=== PATIENT | female | born 1940 | race Caucasian/White ===

== ENCOUNTER → 2016-06-13 | Outpatient (CLI) | payer MEDICARE, OTHER | LOC: GMAB 10:43 | PROVIDERS: ATTEND Family Medicine | DX: E03.9 Hypothyroidism, unspecified (principal); R31.0 Gross hematuria; I10 Essential (primary) hypertension; E78.2 Mixed hyperlipidemia; E11.8 Type 2 diabetes mellitus with unspecified complications; Z79.4 Long term (current) use of insulin ==

== ENCOUNTER → 2016-06-20 | Outpatient (CLI) | payer MEDICARE, OTHER ==
--- NOTE | 2016-06-21 08:54 | CT ---
EXAM DESCRIPTION: CT ABDOMEN AND PELVIS WITHOUT AND WITH CONTRAST CLINICAL HISTORY: GROSS HEMATURIA COMPARISON: December 31, 2014 TECHNIQUE: CT of the abdomen and pelvis are performed prior to and during IV bolus administration of nonionic contrast this exam was performed according to our departmental dose-optimization program, which includes automated exposure control, adjustment of the mA and/or kV according to patient size and/or use of iterative reconstruction technique. FINDINGS: The lung bases are stable and unchanged from 2015 examination. Noncontrast imaging demonstrates no intrarenal calculi involving the left kidney with a large renal pelvic stone filling the distended right renal pelvis with multiple moderate lower pole intrarenal calculi also evident as well as a small hyperdense subcentimeter cyst posterior margin of the mid right kidney. Right-sided calculi are little changed from 2015 examination. Contrast-enhanced imaging demonstrates an unremarkable appearance of the liver and biliary system as well as the spleen and pancreas and adrenal glands with a fluid-filled stomach incidentally noted. On the left a benign cyst upper pole of the kidney is noted with normal renal function with additional smaller cysts involving the lower pole with an intermediate density lower pole left renal cyst measuring 39 Hounsfield units on postcontrast imaging. Correlation with renal sonography is recommended. Right kidney demonstrates normal renal function and demonstrates multiple small to moderately large benign renal cysts involving predominantly the upper lobe and to a lesser extent the lower lobe. No definite solid renal masses are noted on the right. Continuing into the pelvis the bowel and bladder and anterior abdominal and pelvic wall are unremarkable with a normal-appearing vaginal cuff and surgical absence of the uterus. No adnexal masses are noted. Mild levoscoliosis of the spine with moderately advanced degenerative changes are present. This is most evident at L4-5 and L5-S1. IMPRESSION: 1. Multiple right intrarenal calculi including a large renal pelvic stone that overall is little changed from previous 2015 examination with very little evidence of significant obstruction. 2. Multiple bilateral renal lung cysts within intermediate density nonenhancing probable cyst lower pole of the left kidney that should be confirmed sonographically. An avascular solid mass on the left lower pole is thought unlikely but not entirely excluded. 3. Prior hysterectomy and advanced degenerative changes of lower lumbar spine. Electronically signed by: Panchito Best MD 06/21/2016 8:54 AM CDT
== END | disposition home or self-care (01) ==
LOC: CT 10:41
PROVIDERS: ATTEND Family Medicine
DX: R31.0 Gross hematuria (principal)

== ENCOUNTER → 2016-07-04 | Outpatient (CLI) | payer MEDICARE, OTHER ==
--- NOTE | 2016-07-04 15:00 | US ---
EXAM DESCRIPTION: Renal CLINICAL HISTORY: 75 years Female, recent CT showed indeterminate finding lower pole left kidney either representing cyst or avascular mass. COMPARISON: June 20, 2016 CT FINDINGS: Multiple simple cortical cysts are seen involving both kidneys including the lower pole of the left kidney where there is a 2.8 cm cyst observed. There is a minimal amount of internal debris within the cyst in the lower pole of the left kidney. There is no worrisome renal finding. Right kidney measures 11.9 x 5.2 x 5.5 cm. As noted on the CT scan there is nonobstructing nephrolithiasis on the right. Left kidney measures 12.4 x 4.9 x 5.2 cm. IMPRESSION: Benign-appearing renal cysts on both sides. The finding on the CT on the left side is a minimally complicated but benign cyst in the lower pole. Nonobstructing right nephrolithiasis Electronically signed by: Silvano Cali MD 07/04/2016 3:00 PM CDT
== END | disposition home or self-care (01) ==
LOC: US 09:29
PROVIDERS: ATTEND Family Medicine
DX: R93.5 Abnormal findings on diagnostic imaging of other abdominal regions, including retroperitoneum (principal)

== ENCOUNTER 2016-08-11 13:26 | Emergency (ER) | payer MEDICARE, OTHER ==
[2016-08-11] MEDS ORDERED: SODIUM CHLORIDE 0.9% (FLUSH) 10 ML SYG IV PRN (13:41)
[2016-08-11] MEDS ORDERED: ASPIRIN TABLET 325 MG TAB PO ONE (13:41)
--- NOTE | 2016-08-11 13:41 | ED.PDOC ---
History of Present Illness - General Chief Complaint: Chest Pain/WI Stated Complaint: chest pain when taking deep breath Time Seen by Provider: 08/11/16 13:40 Source: patient, RN notes reviewed, Vital Signs reviewed Exam Limitations: no limitations - History of Present Illness Initial Comments: Yajaira More 75 y/o female stated that for the last 2 days her chest was hurting whenever she takes a deep breath which radiates to her shoulder blades denies sob,nausea/vomiting diaphoresis but also hurts when moving around Timing/Duration: intermittent, other - 2 days Location: central Activities at Onset: none Prior Chest Pain/Cardiac Workup: no prior chest pain Improving Factors: nothing Worsening Factors: other - taking deep breaths Nitro Today/Relief: no nitro taken today, provided by ED Aspirin Treatment Today: 81 mg x 1, 325 mg x 1, provided by ED Associated Symptoms: other - movement Allergies/Adverse Reactions: Allergies Sulfa Drugs Allergy (Verified 08/11/16 13:56) adhesive tape Allergy (Unknown, Uncoded 04/29/13 17:20) per patient Review of Systems - Review of Systems Constitutional: States: no symptoms reported EENTM: States: no symptoms reported Respiratory: States: no symptoms reported Cardiology: States: see HPI Gastrointestinal/Abdominal: States: no symptoms reported Genitourinary: States: no symptoms reported Musculoskeletal: States: no symptoms reported Skin: States: no symptoms reported Endocrine: States: no symptoms reported Hematologic/Lymphatic: States: no symptoms reported Past Medical History (General) - Patient Medical History Hx Diabetes: Yes Hx Other PMH: Yes - nephrolitiasis,dyslipedemia Surgical History: other - hysterectomy,btl,hemorrhoidectomy - Social History Hx Alcohol Use: No Hx Substance Use: No Hx Substance Use Treatment: No Hx Depression: No Feels Threatened In Home Enviroment: No Feels Threatened In a Relationship: No Hx Physical Abuse: No Hx Emotional Abuse: No Hx Suspected Abuse: No - Activities of Daily Living Patient Lives Alone: No - family Family Medical History - Family History Mother Hx Family Hypertension: Yes - family members Hx Family Stroke: Yes Hx Cardiac Disease: Yes - several family members Physical Exam - Physical Exam General Appearance: Alert, Comfortable, No apparent distress Eyes, Ears, Nose, Throat Exam: PERRL/EOMI, normal ENT inspection, TMs normal, pharynx normal Neck: non-tender, full range of motion, supple, normal inspection Respiratory: chest non-tender, lungs clear, normal breath sounds, no respiratory distress, no accessory muscle use Cardiovascular/Chest: normal peripheral pulses, regular rate, rhythm, no edema, no murmur Peripheral Pulses: radial,right: 2+, radial,left: 2+ Gastrointestinal/Abdominal: normal bowel sounds, non tender, soft Extremity: normal range of motion, non-tender, normal inspection, no pedal edema , no calf tenderness Neurologic: no motor/sensory deficits, alert, normal mood/affect, oriented x 3 Skin Exam: normal color Lymphatic: no adenopathy Progress - Progress Progress: 08/11/16 17:14 Vital Signs - 8 hr 08/11/16 08/11/16 13:30 13:41 Temperature 98.0 F Pulse Rate [ 84 apical] Respiratory 16 Rate Blood Pressure 153/68 [left brachial] O2 Sat by Pulse 94 L 93 L Oximetry 08/11/16 13:41 IV Care:Saline Lock per Protoc QSHIFT Telemetry .ONCE Sodium Chloride 0.9% (Flush) [Saline Flush Syringe] 10 ml IV PRN PRN EKG Stat Pulse Ox Stat 08/11/16 17:15 Be Our Guest Tray (BOG) ONCE 08/11/16 Dinner 1800 Calorie ADA Diet Laboratory Results - last 24 hr 08/11/16 08/11/16 08/11/16 13:50 13:50 16:07 WBC 5.5 RBC 4.03 L Hgb 12.4 Hct 37.4 MCV 93.0 MCH 30.7 MCHC 33.2 RDW 14.0 Plt Count 296 MPV 8.5 Absolute Neuts (auto) 3.00 Absolute Lymphs (auto) 1.80 Absolute Monos (auto) 0.40 Absolute Eos (auto) 0.20 Absolute Basos (auto) 0.00 Neutrophils % 54.8 Lymphocytes % 32.5 Monocytes % 8.0 Eosinophils % 3.8 Basophils % 0.9 PT 10.9 INR 0.960 PTT (SP) 26.9 D-Dimer, Quantitative < 200 Sodium 135 Potassium 4.6 Chloride 101 Carbon Dioxide 23 Anion Gap 15.6 BUN 29 H Creatinine 1.05 BUN/Creatinine Ratio 27.6 H Random Glucose 382 H Serum Osmolality 291.7 Calcium 9.5 Magnesium 1.9 Creatine Kinase 114 CK-MB (CK-2) 3.7 CK-MB (CK-2) % Not Reportable Troponin I < 0.02 < 0.02 B-Natriuretic Peptide 6.0 08/11/16 17:15 Stated chest pain free recommend admission but declined stating no one to take care of her animals wants to go home. 08/11/16 17:17 - EKG/XRAY/CT EKG: Sinus, no ST T wave changes Comments: heart rate -77 XRAY: chest - tortous aorta,no acute abnormalities Departure - Departure Clinical Impression: Diabetes 1.5, managed as type 1 Chest pain Qualifiers: Chest pain type: chest pain on breathing Qualified Code(s): R07.1 - Chest pain on breathing Time of Disposition: 17:18 Disposition: Discharge to Home or Self Care Condition: Fair Departure Forms: ED Discharge - Pt. Copy, Patient Portal Self Enrollment Instructions: DI for Atypical Chest Pain, DI for Chest Pain Referrals: Dayron Whitaker MD [Primary Care Provider] - 1-2 Weeks Additional Instructions: RETURN TO EMERGENCY ROOM NEEDED IF SYMPTOMS RECURS;continue with current medications;Follow up with primary md Dr. Whitaker 08/17/2016
[2016-08-11] MEDS: NITROGLYCERIN 0.4 MG 25 EA TAB SL ONE ×2 (13:56→14:08)
--- NOTE | 2016-08-11 14:07 | RAD ---
Study: Single Frontal View of the Chest. Indication:pain Comparison: April 26, 2013. Impression: Cardiomegaly. Thoracic aorta tortuous. Lungs clear. Suture anchors right humeral head. Electronically signed by: Cesar Muniz MD 08/11/2016 2:06 PM CDT
[2016-08-11 14:23] VITALS: TEMP 98
[2016-08-11 18:13] VITALS: BP 126/70; O2SAT 96
== END 2016-08-11 17:50 | disposition home or self-care (01) ==
LOC: ER 13:26
DX: R07.1 Chest pain on breathing (principal); Z88.2 Allergy status to sulfonamides; Z82.3 Family history of stroke; Z82.49 Family history of ischemic heart disease and other diseases of the circulatory system

== ENCOUNTER → 2016-10-10 | Outpatient (CLI) | payer MEDICARE, OTHER ==
--- NOTE | 2016-10-10 17:43 | RAD ---
EXAM DESCRIPTION: XR ABDOMEN 1 VIEW (KUB) CLINICAL HISTORY: KIDNEY STONES COMPARISON: CT examination June 20, 2016 TECHNIQUE: KUB FINDINGS: Single view of the abdomen demonstrates a modestly distended stomach. Distinct or definite renal calculi are not apparent. An unusual calcific density overlies the left iliac crest and presumably represents some form of foreign body or overlying density on the patient's clothing. Small bilateral pelvic calcifications likely represent phleboliths but the possibility of small distal ureteral stone cannot be excluded. A larger definite renal calculus is not apparent. A large renal pelvic stone seen on recent CT examination is not clearly visible and is either not present or possibly represents a uric acid stone that is difficult to identify on plain film study. IMPRESSION: No definite intrarenal calculi are noted with multiple pelvic calcifications likely representing phleboliths. Electronically signed by: Panchito Best MD 10/10/2016 5:42 PM CDT
== END | disposition home or self-care (01) ==
LOC: RAD 14:46
PROVIDERS: ATTEND Urology
DX: N20.0 Calculus of kidney (principal)

== ENCOUNTER → 2016-11-14 | Outpatient (CLI) | payer MEDICARE, OTHER | END | disposition home or self-care (01) | LOC: GMAB 16:55 | PROVIDERS: ATTEND Family Medicine | DX: R94.5 Abnormal results of liver function studies (principal) ==

== ENCOUNTER → 2016-11-17 | Outpatient (CLI) | payer MEDICARE, OTHER ==
--- NOTE | 2016-11-18 15:41 | US ---
EXAM DESCRIPTION: Abdomen,Complete CLINICAL HISTORY: ABNORMAL RESULTS OF LIVER FUNCTION STUDY COMPARISON: Renal ultrasound 07/04/2016 TECHNIQUE: Transabdominal scannin-dimensional and Doppler modes. FINDINGS: The gallbladder contains an echogenic object on the wall of the gallbladder measuring 2.5 mm. Does not move with patient change in position. No fluid around the gallbladder. Wall thickness normal. 2.2 mm. Common bile duct caliber 5.5 mm which is within normal limits. No stones in the visualized portion of the duct. Not tender with transducer pressure. The liver demonstrates increased echogenicity; contour of the liver capsule is smooth where seen. No fluid around the liver. Intrahepatic biliary ducts are non-dilated. Craniocaudal dimension in the mid-clavicular axis is 19.0 cm. Pancreas head, body, and tail normal in size and echogenicity. Pancreatic duct is not dilated. Normal Doppler vascularity in the edith hepatis. Abdominal aorta diameter proximal 1.9 cm. Mid 1.3 cm. Distal 1.2 cm. IVC visualized; normal caliber. Spleen normal echogenicity; long axis measurement is 9.8 cm. No fluid in the spleno-renal fossa. Right kidney measures 10.5 x 4.5 x 4.5 cm with multiple cysts.. Largest cyst measures 4.4 x 4.1 cm. Multiple cortical cysts, remaining cortex with normal thickness. Echogenicity otherwise normal with no hydronephrosis, no large calcifications, and no perinephric fluid. Contour smooth. Vascularity normal. Ureter not visualized. Left kidney measures 11.9 x 6.3 x 5.8 cm with multiple cysts.. Largest cyst 2.3 x 2.2 cm. Normal mid renal cortical thickness. Echogenicity otherwise normal with no hydronephrosis, no large calcifications, and no perinephric fluid. Contour smooth. Vascularity normal. Ureter not visualized. IMPRESSION: 1. Small polyp along the gallbladder wall. No gallbladder wall thickening stones or sludge. No pericholecystic fluid. Nontender. Normal common bile duct. 2. Minimal hepatomegaly with fatty infiltration/steatosis. This can be related to obesity and a variety of metabolic and toxic conditions. Normal ultrasound of the pancreas. 3. Normal caliber of the abdominal aorta. Normal ultrasound of the spleen. 4. Multiple bilateral renal cysts. No perirenal fluid or hydronephrosis. Nephrolithiasis was not demonstrated on this exam. Electronically signed by: Dalton Da Silva MD 11/18/2016 3:39 PM CDT
== END | disposition home or self-care (01) ==
LOC: US 10:21
PROVIDERS: ATTEND Family Medicine
DX: R94.5 Abnormal results of liver function studies (principal)

== ENCOUNTER → 2017-06-14 | Outpatient (CLI) | payer MEDICARE, OTHER | LOC: GMAB 10:52 | PROVIDERS: ATTEND Family Medicine | DX: R30.0 Dysuria (principal); E03.9 Hypothyroidism, unspecified; E11.8 Type 2 diabetes mellitus with unspecified complications; I10 Essential (primary) hypertension; Z79.4 Long term (current) use of insulin ==

== ENCOUNTER → 2017-06-28 | Outpatient (CLI) | payer MEDICARE, OTHER | LOC: GMAB 14:39 | PROVIDERS: ATTEND Family Medicine | DX: R30.0 Dysuria (principal) ==

== ENCOUNTER → 2017-07-03 | Outpatient (CLI) | payer MEDICARE, OTHER | LOC: SL 18:59 | PROVIDERS: ATTEND Family Medicine | DX: G47.33 Obstructive sleep apnea (adult) (pediatric) (principal); G47.00 Insomnia, unspecified; I10 Essential (primary) hypertension ==